=== PATIENT | female | born 1990 | race Caucasian/White ===

== ENCOUNTER 2018-12-11 10:00 | Emergency (ER) | payer OTHER ==
[2018-12-11 10:04] VITALS: BMI 35.2
--- NOTE | 2018-12-11 11:29 | PDOC ---
History of Present Illness - General Chief Complaint: Injury Stated Complaint: BROKEN JAW Time Seen by Provider: 12/11/18 10:50 History Source: Patient, Legal Guardian(s) Exam Limitations: No Limitations - History of Present Illness Initial Comments: 12/11/18 11:23 28 yo F w/ no sig Baudilio comes in for evaluation of jaw pain s/p slip and fall on ice today at 3am. She landed on her L side, denies LOC, no dizziness, no nausea/ vomiting. C/o diffuse jaw pain, mostly in the front, below mandibular incisors and TMJs bilaterally. Also c/o a mild intermittent diffuse pounding headache, worse with talking, jaw movement. (+)mild diffuse neck pain. NO other complaints today. Denies pain anywhere els, no numbness/tingling/weakness anywhere, no hearing/ vision loss 12/11/18 19:56 Past History - Past Medical History Allergies/Adverse Reactions: Allergies Allergy/AdvReac Type Severity Reaction Status Date / Time latex Allergy Verified 12/11/18 10:05 COPD: No - Suicide/Smoking/Psychosocial Hx Smoking History: Never smoked Review of Systems - Review of Systems Able to Perform ROS?: Yes Constitutional: No: Chills, Fever, Malaise, Night Sweats HEENTM: No: Eye Pain, Recent change in vision, Throat Pain Respiratory: No: Cough, Shortness of Breath Cardiac (ROS): No: Chest Pain, Palpitations, Chest Tightness ABD/GI: No: Diarrhea, Nausea, Vomiting, Abdominal cramping : No: Dysuria, Hematuria Musculoskeletal: No: Back Pain Integumentary: No: Rash Neurological: Yes: Headache. No: Numbness, Dizziness Psychiatric: No: Change in Appetite Endocrine: No: Unexplained Weight Loss *Physical Exam - Vital Signs Last Vital Signs Temp Pulse Resp BP Pulse Ox 100 H 20 143/60 100 12/11/18 10:02 12/11/18 10:02 12/11/18 10:02 12/11/18 10:02 - Physical Exam General Appearance: Yes: Nourished. No: Apparent Distress HEENT: positive: TIMO, Normal Voice, Other (Jaw slightly deviated to the right. No racoon/batthe sign, no hemotympanum. no septal hematomas (+)gap between mandibular incisors which closes when jaw opens and opens when jaw closes, (+) bruising and tenderness to mandibular gums below incisors and under the tongue, (+)bruising on face overlying R mandible boy and angle. Unable to perform bite test. no active bleeding now. (+)trismus ). negative: Pale Conjunctivae, Scleral Icterus (R), Scleral Icterus (L) Neck: positive: Tender (bilateral paraspinal tenderness, ?midline tenderness), Supple. negative: Decreased range of motion, Rigidity Respiratory/Chest: positive: Lungs Clear, Normal Breath Sounds. negative: Respiratory Distress, Accessory Muscle Use Cardiovascular: positive: Regular Rhythm, Regular Rate Comments:: 12/11/18 11:30 Neuro exam: A+Ox3 (person, place, time), normal sensorium. Visual arreola: full to confrontation. Pupils: equal, round, and reactive to light. EOM: intact and smooth pursuit. No nystagmus. Sensation: V1, V2, and V3 normal b/l Facial strength: facial expression, shoulder shrug, and head turn normal. Hearing: grossly intact b/l Mouth: tongue protrudes midline and moves Left/Right equal b/l. Uvula rises symmetrically. Motor: UE and LE 5/5 diffusely. Sensation: light touch and pinprick WNL. Cerebellum: [id number] normal without dysmetria or intention tremor. Trid-nk-yafw wnl. No dysdiadodyskinesia. Gait: unassisted, steady, Romberg negative, and heel-walk normal. No atalgia, difficulty in ambulation or ataxia. 12/11/18 11:38 Gastrointestinal/Abdominal: positive: Normal Bowel Sounds, Soft. negative: Tender Musculoskeletal: positive: Normal Inspection. negative: CVA Tenderness, Decreased Range of Motion Extremity: positive: Normal Capillary Refill, Normal Inspection, Normal Range of Motion. negative: Tender, Pedal Edema Integumentary: positive: Normal Color, Dry. negative: Jaundice, Rash Moderate Sedation - Procedure Monitoring Vital Signs: Procedure Monitoring Vital Signs Temperature Pulse Rate 100 H 12/11/18 10:02 Respiratory Rate 20 12/11/18 10:02 Blood Pressure 143/60 12/11/18 10:02 O2 Sat by Pulse Oximetry (%) 100 12/11/18 10:02 ED Treatment Course - RADIOLOGY Radiology Studies Ordered: Category Date Time Status CERVICAL SPINE CT W/O CONTR [CT] Stat CT Scan 12/11/18 11:[address] W/O CONTRAST [CT] Stat CT Scan 12/11/18 11:[address] WITHOUT CONTRAST [CT] Stat CT Scan 12/11/18 11:16 Ordered Medical Decision Making - Medical Decision Making 12/11/18 11:38 28 yo F s/p slip and fall w/ headache, jaw pain, (+)trismus, likely jaw fracture. Will do CT head/C spine/Facial bones, will give percocet for pain and reassess 12/11/18 13:55 CT shows non displaced Fx of mandible, slightly to the left of the midline, will transfer to [facility] for OMFS consult 12/11/18 13:56 12/11/18 14:[address] Price, OMFS at [facility], who accepted to consult on the transfer. Transfer center aware, they will send BLS to [facility] patient to go to the ER at [facility]. Pt agreeable with plan *DC/Admit/Observation/Transfer Diagnosis at time of Disposition: Jaw fracture Qualifiers: Encounter type: initial encounter Fracture type: closed Qualified Code(s): S02.609A - Fracture of mandible, unspecified, initial encounter for closed fracture - Discharge Dispostion Disposition: TRANSFER ACUTE CARE/OTHER HOSP Condition at time of disposition: Stable - Referrals Referrals: Shania Rivero [Primary Care Provider] - - Patient Instructions - Post Discharge Activity
[2018-12-11 14:37] VITALS: BP 112/59; PULSE 90; TEMP 97.9
== END 2018-12-11 14:55 | disposition short-term general hospital (02) ==
LOC: JER 10:00 → JERFT 10:00 → JER 14:55
DX: S02.69XA Fracture of mandible of other specified site, initial encounter for closed fracture (principal); W00.0XXA Fall on same level due to ice and snow, initial encounter; Y93.01 Activity, walking, marching and hiking; Y92.89 Other specified places as the place of occurrence of the external cause; Y99.8 Other external cause status; Z91.040 Latex allergy status
CPT/HCPCS: 70450-TC; 70486-TC; 72125-TC; 84703; 99283-25

== ENCOUNTER 2019-04-15 20:01 | Inpatient (IN) | payer OTHER | END 2019-04-17 14:57 | disposition home or self-care (01) | LOC: JERBED 04-16 01:23 → JER 20:01 → J6S 04-16 06:33 ==